=== PATIENT | female | born 1940 | race Native Hawaiian/Other Pacific Islander ===

== ENCOUNTER 2021-09-04 14:06 | Emergency (ER) | payer OTHER ==
[~2021-09-04] VITALS: Ht 170.2 cm; Wt 117.9 kg
[2021-09-04 14:15] VITALS: BP 160/74; TEMP 97.9
[2021-09-04 14:26] LABS: PLATELET COUNT 316 K/uL (152-353)
[2021-09-04 14:48] LABS: POTASSIUM 4.1 mmol/L (3.6-5.2)
[2021-09-04] MEDS ORDERED: DONEPEZIL HYDRO10 MG PO (16:29)
[2021-09-04] MEDS ORDERED: ELIQUIS5 MG PO (16:30)
[2021-09-04] MEDS ORDERED: HYDR25TA60 PO (16:31)
[2021-09-04] MEDS ORDERED: METO50TA27 PO (16:32)
[2021-09-04] MEDS ORDERED: MIRALAX17 GM PO (16:34)
[2021-09-04] MEDS ORDERED: POT CHLORIDE10 MEQ PO (16:34)
[2021-09-04] MEDS ORDERED: ZOLOFT25 MG PO (16:35)
[2021-09-04] MEDS ORDERED: TRAZODONE HYDRO50 MG PO (16:35)
[2021-09-04] MEDS ORDERED: APAP325 MG PO (16:36)
== END 2021-09-04 15:30 | disposition still patient (30) ==
LOC: ED 14:06
PROVIDERS: Emergency Medicine
DX: G30.8 Other Alzheimer's disease (principal); F02.81 Dementia in other diseases classified elsewhere, unspecified severity, with behavioral disturbance; J40 Bronchitis, not specified as acute or chronic; J84.89 Other specified interstitial pulmonary diseases; Z11.52 Encounter for screening for COVID-19; Z04.6 Encounter for general psychiatric examination, requested by authority
CPT/HCPCS: 80053; 84443; 85027; 87635; 93005; 99283; U0003